=== PATIENT | male | born 1990 | race Caucasian/White ===

== ENCOUNTER 2018-11-21 09:44 | Emergency (ER) | payer MEDICAID ==
[~2018-11-21] VITALS: Ht 167.6 cm; Wt 108.0 kg
[2018-11-21 11:11] VITALS: BP 134/76
== END 2018-11-21 11:11 | disposition home or self-care (01) ==
LOC: ED 09:44
DX: L60.0 Ingrowing nail (principal)
CPT/HCPCS: J2001